=== PATIENT | female | born 1990 | race Hispanic/Latino ===

== ENCOUNTER 2019-07-29 10:36 | Emergency (ER) | payer OTHER ==
[2019-07-29] MEDS ORDERED: DICYCLOMINE HCL 10 MG CAP ONE (11:19)
[2019-07-29] MEDS ORDERED: NA CHLORIDE 0.9% 1,000 ML ONE (11:19)
[2019-07-29] MEDS ORDERED: ONDANSETRON 4 MG/2 ML VIAL ONE (11:19)
[2019-07-29 11:49] LABS: Absolute Lymphocytes (CBC) 0.8 K/uL (0.7-4.9); Basophils % 0.2 % (0-1.3); Hematocrit 41.6 % (36.0-45.0); Lymphocytes % 5.5 % (15.3-44.8); RBC Red Blood Cell Count 4.79 M/uL (3.86-4.86)
[2019-07-29 11:54] LABS: Urine Blood 2+ (NEG); Urine Glucose NEGATIVE (NEG); Urine Protein 1+ (NEG)
[2019-07-29 11:56] LABS: Albumin 4.3 g/dL (3.4-5.0); Bilirubin Total 0.8 mg/dL (0.2-1.0); Potassium 3.8 mmol/L (3.5-5.1)
[2019-07-29 12:02] LABS: Urine Bacteria 20-50 /HPF (<20)
[2019-07-29 12:03] LABS: Urine Culture Reflex Order REFLEXED
[2019-07-29 12:29] LABS: Blood Morphology Comment NOTED (NOT SEEN); Platelet Estimate ADEQ; Stomatocytes 1+
--- NOTE | 2019-07-29 12:59 | RAD REPORT ---
EXAM DESCRIPTION: CT - Abdomen Pelvis W Contrast - 07/29/2019 12:43 pm CLINICAL HISTORY: Abdominal pain COMPARISON: none. TECHNIQUE: Computed axial tomography of the abdomen pelvis was obtained. 100 cc Isovue-300 was admin istered intravenously. Oral contrast was not requested which limits evaluation of bowel. All CT scans are performed using dose optimization technique as appropriate and may include automated exposure control or mA/KV adjustment according to patient size. FINDINGS: The liver, spleen, pancreas, adrenal and kidneys appear unremarkable. Normal appendix. The wall of the proximal transverse colon and ascending colon is markedly thickened. Small umbilical hernia 2.8 centimeter right ovarian cyst without significant free-fluid IUD in good position IMPRESSION: Marked colitis involving the proximal transverse and ascending colon
[2019-07-29] MEDS ORDERED: KETOROLAC 30 MG/ML INJ ONE (13:02)
[2019-07-29] MEDS ORDERED: CIPROFLOXACIN 400mg IV 0 MG/0 ML BAG IV ONE (13:11)
[2019-07-29] MEDS ORDERED: METRONIDAZOLE 500mg IVPB 0 MG/0 ML BAG IV ONE (13:11)
[2019-07-29] MEDS ORDERED: metroNIDAZOLE 500 MG TABLET ONE (13:14)
[2019-07-29] MEDS ORDERED: CIPROFLOXACIN HCL 500 MG TAB ONE (13:14)
--- NOTE | 2019-07-29 13:23 | ER ---
Nurse's Notes [facility] Name: Yamliet Cloud Age: 28 yrs Sex: Female : 1990 Arrival Date: 07/29/2019 Time: 10:39 Bed 13 Private MD: Diagnosis: Colitis Presentation: 07/29 10:48 Presenting complaint: Patient states: suprapubic pain since last night, denies burning em with urination, also reports fever of 101.3 last night, N/D, denies vomiting, took Tylenol this morning 0700. Transition of care: patient was not received from another setting of care. Onset of symptoms was July 28, 2019. Risk Assessment: Do you want to hurt yourself or someone else? Patient reports no desire to harm self or others. Initial Sepsis Screen: Does the patient meet any 2 criteria? HR > 90 bpm. No. Patient's initial sepsis screen is negative. Does the patient have a suspected source of infection? No. Patient's initial sepsis screen is negative. Care prior to arrival: None. 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 - Social history:: Smoking status: Patient uses tobacco products. - Ebola Screening: : Patient negative for fever greater than or equal to 101.5 degrees Fahrenheit, and additional compatible Ebola Virus Disease symptoms Patient denies exposure to infectious person Patient denies travel to an Ebola-affected area in the 21 days before illness onset No symptoms or risks identified at this time. Screenin:52 Abuse screen: Denies threats or abuse. Nutritional screening: No deficits noted. em Tuberculosis screening: No symptoms or risk factors identified. Fall Risk None identified. Assessment: 10:51 General: Appears in no apparent distress. comfortable, Behavior is calm, cooperative, em Reports fever for 0-12 hours. Pain: Complains of pain in suprapubic area Pain currently is 0 out of 10 on a pain scale. at worst was 10 out of 10 on a pain scale. Pain began last night Is intermittent. Neuro: Level of Consciousness is awake, alert, obeys commands, Oriented to person, place, time, situation, Appropriate for age. Cardiovascular: Capillary refill < 3 seconds Patient's skin is warm and dry. Respiratory: Airway is patent Respiratory effort is even, unlabored, Respiratory pattern is regular, symmetrical. GI: Abdomen is flat, Bowel sounds present X 4 quads. Abd is soft X 4 quads Abdomen is tender to palpation in suprapubic area Reports diarrhea, nausea, Patient currently denies vomiting. : Denies burning with urination. Derm: Skin is intact, is healthy with good turgor, Skin is pink, warm \T\ dry. Musculoskeletal: Capillary refill < 3 seconds, Range of motion: intact in all extremities. 11:40 Reassessment: Patient appears in no apparent distress at this time. Patient and/or em family updated on plan of care and expected duration. Pain level reassessed. nausea has improved. 12:00 Reassessment: Patient appears in no apparent distress at this time. reports cramping em pain that lasted about 3 minutes, pain has subsided without intervention, provider notified of pain. Vital Signs: 10:51 BP 146 / 93; Pulse 105; Resp 20; Temp 99.7(O); Pulse Ox 96% on R/A; Weight 81.65 kg; em Height 5 ft. 6 in. (167.64 cm); Pain 0/10; 11:46 BP 132 / 85; Pulse 89; Resp 18; Pulse Ox 99% on R/A; Pain 0/10; em 13:00 BP 125 / 76; Pulse 86; Resp 18; Pulse Ox 97% on R/A; em 10:51 Body Mass Index 29.05 (81.65 kg, 167.64 cm) em ED Course: 10:39 Patient arrived in ED. as 10:39 Evangelista Raman PA is PHCP. jr8 10:39 Sam Garzon MD is Attending Physician. jr8 10:41 Harley Alarcon LVN is Primary Nurse. em 10:51 Arm band placed on. em 10:52 Patient has correct armband on for positive identification. Placed in gown. Bed in low em position. Call light in reach. Pulse ox on. NIBP on. 10:55 Triage completed. ss 11:30 Initial lab(s) drawn, by me, sent to lab. Inserted saline lock: 20 gauge in right em antecubital area, using aseptic technique. Blood collected. 12:43 CT Abd/Pelvis - IV Contrast Only In Process Unspecified. EDMS 13:22 Alexis López MD is Referral Physician. jr8 13:23 No provider procedures requiring assistance completed. em 13:35 IV discontinued, intact, bleeding controlled, No redness/swelling at site. Pressure em dressing applied. Administered Medications: 11:30 Drug: NS 0.9% 1000 ml Route: IV; Rate: 1000 ml; Site: right antecubital; ss 13:09 Follow up: IV Status: Completed infusion; IV Intake: 1000ml em 11:30 Drug: Zofran 4 mg Route: IVP; Site: right antecubital; ss 11:46 Follow up: Response: No adverse reaction; Nausea is decreased em 11:45 Drug: Bentyl 20 mg Route: PO; em 12:25 Follow up: Response: No adverse reaction em 13:09 Drug: TORadol - Ketorolac 15 mg Route: IVP; Site: right antecubital; ss 13:21 Follow up: Response: No adverse reaction; Pain is decreased em 13:21 Drug: Ciprofloxacin 500 mg Route: PO; em 13:30 Follow up: Response: Medication administered at discharge. em 13:21 Drug: Flagyl 500 mg Route: PO; em 13:30 Follow up: Response: No adverse reaction; Medication administered at discharge. em Intake: 13:09 IV: 1000ml; Total: 1000ml. em Outcome: 13:22 Discharge ordered by . jr8 13:34 Discharged to home ambulatory, with family. em 13:34 Condition: good 13:34 Discharge instructions given to patient, family, Instructed on discharge instructions, follow up and referral plans. medication usage, Demonstrated understanding of instructions, follow-up care, medications, Prescriptions given X 5 13:36 Patient left the ED. em Signatures: Dispatcher [employer] EDMS Harley Alarcon, EDGE INKER HEELS EDGE INKER HEELS em Patricia Parr Shelby, SALLY RN ss Evangelista Raman, ROSI ARANDA jr8
--- NOTE | 2019-07-29 13:23 | EDPHYS ---
Physician Documentation [facility] Name: Yamilet Cloud Age: 28 yrs Sex: Female : 1990 Arrival Date: 07/29/2019 Time: 10:39 Bed 13 Private MD: ED Physician Sam Garzon HPI: 07/29 11:51 This 28 yrs old Female presents to ER via Ambulatory with complaints of jr8 Abdominal Pain, Diarrhea, Fever, Headache. 11:51 The patient presents with abdominal pain in the lower abdomen. Onset: The jr8 symptoms/episode began/occurred today, yesterday. The symptoms do not radiate. Associated signs and symptoms: Pertinent positives: diarrhea. The symptoms are described as crampy, sharp. Modifying factors: The symptoms are alleviated by nothing. Severity of pain: At its worst the pain was moderate in the emergency department the pain has resolved. Pt reports nausea, diarrhea, cough, low grade fever, and intermittent abd pain followed by the sensation of needing to have a BM.. 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 - Social history:: Smoking status: Patient uses tobacco products. - Ebola Screening: : Patient negative for fever greater than or equal to 101.5 degrees Fahrenheit, and additional compatible Ebola Virus Disease symptoms Patient denies exposure to infectious person Patient denies travel to an Ebola-affected area in the 21 days before illness onset No symptoms or risks identified at this time. ROS: 11:51 Constitutional: Negative weight loss + fever Eyes: Negative for injury, pain, redness, jr8 and discharge, ENT: Negative for injury, pain, and discharge, Neck: Negative for injury, pain, and swelling, Cardiovascular: Negative for chest pain, palpitations, and edema, Respiratory: Negative for shortness of breath, cough, wheezing, and pleuritic chest pain, Back: Negative for injury and pain, : Negative for injury, bleeding, discharge, and swelling, MS/Extremity: Negative for injury and deformity, Neuro: Negative for headache, weakness, numbness, tingling, and seizure. 11:51 Abdomen/GI: Positive for diarrhea. Exam: 11:53 Constitutional: This is a well developed, well nourished patient who is awake, alert, jr8 and in no acute distress. Head/Face: Normocephalic, atraumatic. Eyes: Pupils equal round and reactive to light, extra-ocular motions intact. Lids and lashes normal. Conjunctiva and sclera are non-icteric and not injected. Cornea within normal limits. Periorbital areas with no swelling, redness, or edema. ENT: Mucous membranes moist. Neck: Trachea midline, no thyromegaly or masses palpated, and no cervical lymphadenopathy. Supple, full range of motion without nuchal rigidity, or vertebral point tenderness. No Meningismus. Chest/axilla: Normal chest wall appearance and motion. Nontender with no deformity. No lesions are appreciated. Cardiovascular: Regular rate and rhythm with a normal S1 and S2. No gallops, murmurs, or rubs. Normal PMI, no JVD. No pulse deficits. Respiratory: Lungs have equal breath sounds bilaterally, clear to auscultation.No rales, rhonchi or wheezes noted. No increased work of breathing, no retractions or nasal flaring. Abdomen/GI: Soft, non-tender, with normal bowel sounds. No distension or tympany. No guarding or rebound. No evidence of tenderness throughout. Back: No spinal tenderness. No costovertebral tenderness. Full range of motion. MS/ Extremity: Pulses equal, no cyanosis. Neurovascular intact. Full, normal range of motion. Neuro: Awake and alert, GCS 15, oriented to person, place, time, and situation. Cranial nerves II-XII grossly intact. Motor strength 5/5 in all extremities. Sensory grossly intact. Cerebellar exam normal. Normal gait. Vital Signs: 10:51 BP 146 / 93; Pulse 105; Resp 20; Temp 99.7(O); Pulse Ox 96% on R/A; Weight 81.65 kg; em Height 5 ft. 6 in. (167.64 cm); Pain 0/10; 11:46 BP 132 / 85; Pulse 89; Resp 18; Pulse Ox 99% on R/A; Pain 0/10; em 13:00 BP 125 / 76; Pulse 86; Resp 18; Pulse Ox 97% on R/A; em 10:51 Body Mass Index 29.05 (81.65 kg, 167.64 cm) em MDM: 10:45 Patient medically screened. jr8 13:21 Differential diagnosis: appendicitis, bowel obstruction, diverticulitis, gastritis, jr8 non-specific abd pain, Pelvic Inflammatory Disease, urinary tract infection, colitis, enteritis. Data reviewed: vital signs, nurses notes, lab test result(s), radiologic studies, CT scan. Data interpreted: Pulse oximetry: on room air is 99 %. Interpretation: normal. Counseling: I had a detailed discussion with the patient and/or guardian regarding: the historical points, exam findings, and any diagnostic results supporting the discharge/admit diagnosis, lab results, radiology results, the need for outpatient follow up, a family practitioner, a purchasing associate, to return to the emergency department if symptoms worsen or persist or if there are any questions or concerns that arise at home. Response to treatment: the patient's symptoms have mildly improved after treatment. 07/29 11:10 Order name: Urine Dipstick--Ancillary (enter results); Complete Time: 11:56 07/29 11:10 Order name: Urine --Ancillary (enter results); Complete Time: 11:56 eb 07/29 11:11 Order name: Flu; Complete Time: 11:56 8 07/29 11:11 Order name: CBC with Diff; Complete Time: 12:58 jr8 07/29 11:11 Order name: CMP; Complete Time: 11:56 jr8 07/29 11:12 Order name: Urine Microscopic Only; Complete Time: 12:04 eb 07/29 12:05 Order name: Urine Culture EDCT 07/29 12:07 Order name: CT Abd/Pelvis - IV Contrast Only; Complete Time: 13:05 8 07/29 12:29 Order name: Manual Differential; Complete Time: 12:58 EDCT 07/29 11:11 Order name: SL; Complete Time: 11:33 jr8 Administered Medications: 11:30 Drug: NS 0.9% 1000 ml Route: IV; Rate: 1000 ml; Site: right antecubital; ss 13:09 Follow up: IV Status: Completed infusion; IV Intake: 1000ml em 11:30 Drug: Zofran 4 mg Route: IVP; Site: right antecubital; ss 11:46 Follow up: Response: No adverse reaction; Nausea is decreased em 11:45 Drug: Bentyl 20 mg Route: PO; em 12:25 Follow up: Response: No adverse reaction em 13:09 Drug: TORadol - Ketorolac 15 mg Route: IVP; Site: right antecubital; ss 13:21 Follow up: Response: No adverse reaction; Pain is decreased em 13:21 Drug: Ciprofloxacin 500 mg Route: PO; em 13:30 Follow up: Response: Medication administered at discharge. em 13:21 Drug: Flagyl 500 mg Route: PO; em 13:30 Follow up: Response: No adverse reaction; Medication administered at discharge. em Disposition: 15:30 Co-signature as Attending Physician, Sam Garzon MD. gs Disposition: 07/29/19 13:22 Discharged to Home. Impression: Colitis. - Condition is Stable. - Discharge Instructions: Colitis. - Prescriptions for Bentyl 20 mg Oral Tablet - take 1 tablet by ORAL route every 6 hours As needed; 20 tablet. Cipro 500 mg Oral Tablet - take 1 tablet by ORAL route every 12 hours for 10 days; 20 tablet. Flagyl 500 mg Oral Tablet - take 1 tablet by ORAL route every 6 hours for 10 days; 40 tablet. Tylenol- Codeine #3 300-30 mg Oral Tablet - take 2 tablets by ORAL route every 6 hours As needed; 12 tablet. Zofran 4 mg Oral Tablet - take 1 tablet by ORAL route every 12 hours As needed; 20 tablet. - Medication Reconciliation Form, Thank You Letter, Antibiotic Education, Prescription Opioid Use form. - Work release form (07/29/19 13:37). em - Follow up: Alexis López MD; When: 10 - 14 days; Reason: Recheck today's complaints, Continuance of care, Re-evaluation by your physician. - Problem is new. - Symptoms have improved. Signatures: Dispatcher [employer] EDCT Harley Alarcon, ASSISTANT IN NURSING ASSISTANT IN NURSING Vee Thomas RN RN Evangelista Henderson PA PA jr8 Sam Garzon MD MD Corrections: (The following items were deleted from the chart) 13:36 13:22 07/29/2019 13:22 Discharged to Home. Impression: Colitis. Condition is Stable. em Forms are Medication Reconciliation Form, Thank You Letter, Antibiotic Education, Prescription Opioid Use. Follow up: Alexis López; When: 10 - 14 days; Reason: Recheck today's complaints, Continuance of care, Re-evaluation by your physician. Problem is new. Symptoms have improved. jr8
[2019-07-29 14:00] VITALS: TEMP 99.7
[2019-07-29 14:02] VITALS: BP 125/76; O2SAT 97
== END 2019-07-29 13:36 | disposition home or self-care (01) ==
LOC: ER 10:36
DX: K52.9 Noninfective gastroenteritis and colitis, unspecified (principal); Z72.0 Tobacco use
CPT/HCPCS: 96361; 87088; 85025; 87086; 36415; 81025; 80053; 87804 ×2; 74177; 96375; 96374; 99284; Q9967; J7030; J2405; 81003; 81015; J0744

== ENCOUNTER 2022-04-25 07:56 | Inpatient (IN) | payer OTHER ==
[2022-04-25 09:11] LABS: Specific Gravity 1.025 (1.005-1.030); Urine Bilirubin Negative (Negative); Urine Blood Trace-lysed (Negative); Urine Clarity Clear (Clear); Urine Color Yellow (Yellow); Urine Glucose Negative (Negative); Urine Protein 1+ (Negative); Urine Urobilinogen 0.2 mg/dL (0.2-1.0); Urine pH 6.5 (5.0-7.0)
[2022-04-25 09:28] LABS: Urine Bacteria <20 /HPF (<20); Urine Mucus Slight /HPF (None Seen); Urine RBC <5 /HPF (None Seen)
[2022-04-25] MEDS ORDERED: Ringers Lactate 1,000 ML IV PRN (09:39)
[2022-04-25] MEDS ORDERED: PROMETHAZINE INJ 25 MG/ML AMP IV PRN (09:39)
[2022-04-25] MEDS ORDERED: BUTORPHANOL 1 MG/ML INJ IV PRN (09:39)
[2022-04-25] MEDS: Ringers Lactate 1,000 ML IV SCH ×2 (09:43→16:29)
[2022-04-25] MEDS ORDERED: MAGNESIUM SULF/STERILE WATER 1,000 ML IV SCH (10:00)
[2022-04-25] MEDS ORDERED: miSOPROStoL 100 MCG TAB VAG ONE (10:00)
[2022-04-25] MEDS ORDERED: LABETALOL 20 MG/4ML SYRINGE IV PRN (10:06)
[2022-04-25] MEDS ORDERED: LABETALOL HCL 100 MG/20 ML ONE (10:07)
[2022-04-25 10:22] LABS: Hematocrit 38.2 % (36.0-45.0); Lymphocytes % 18.3 % (15.3-44.8); MCV 82.7 fL (80-100); MPV 11.3 fL (7.6-11.3); RBC Red Blood Cell Count 4.62 M/uL (3.86-4.86)
[2022-04-25 10:30] LABS: Protime INR 0.96
[2022-04-25 10:57] LABS: ALT/SGPT 18 U/L (12-78); AST/SGOT 15 U/L (15-37); Albumin 2.6 g/dL (3.4-5.0); Alkaline Phosphatase 183 U/L (45-117); BUN Blood Urea Nitrogen 9 mg/dL (7-18); Bicarbonate 20 mmol/L (21-32); Bilirubin Total 0.3 mg/dL (0.2-1.0); Glomerular Filtration Rate 115 ml/min (=/>90); Glucose Level 97 mg/dL (74-106); Potassium 3.6 mmol/L (3.5-5.1); Protein, Total 6.5 g/dL (6.4-8.2); Sodium Level 139 mmol/L (136-145); Uric Acid 5.8 mg/dL (2.6-6.0)
[2022-04-25 11:18] LABS: Blood Morphology Comment NOT SEEN (NOT SEEN); Platelet Estimate ADEQ; Platelets, Giant RARE; White Blood Cell Scan OK (OK)
[2022-04-25 11:53] LABS: Bilirubin Direct < 0.1 mg/dL (0-0.2)
[2022-04-25 12:19] VITALS: BMI 34.1
[2022-04-25] MEDS ORDERED: PENICILLIN 5 MU in NA CHLORIDE 0.9% 100 ML IV ONE (14:00)
[2022-04-25] MEDS ORDERED: LABETALOL HCL 100 MG/20 ML IV PRN ×2 (14:37→16:08)
--- NOTE | 2022-04-25 14:41 | PREOPHP ---
Date of Admission: 04/25/2022 History Of Present Illness: A 31-year-old 2, para 1, 37 weeks 5 days, noted to have elevated blood pressure in my office, +2 protein on clean-catch. Her hands are suffering from carpal tunnel syndrome, which shows fluid retention. Her ankles are really not that swollen. Reflexes are brisk, but not abnormal. 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 Here in the hospital, her blood pressures are ranging from 141 low to 168 high systolic. She has +1 protein on catheterized specimen and at this poi nt, it looks like she is developing preeclampsia. Of note, the father of this child is different fro m the father of the first child. Family History: Not contributory. Past Medical History: Patient has a history of asthma, has used her inhaler occasionally during the , but not significantly. Allergies: HAS NO ALLERGIES. Medications: vitamins prior to admission. Social History: Does not smoke. Physical Examination: HEENT: Clear. Pupils equal, round, reactive to light and accommodation. Conjunctivae well perfused . No oral, lingual, or buccal lesions. Chest and Lungs: Clear. Heart: Without murmurs, thrills, heaves, or rubs. Breasts: Without masses. Abdomen: Term size. Baby is 7 pounds or greater. Extremities: Clear with brisk reflexes, but no major edema. : Her cervix is 1.5, still somewhat posterior, 50% effaced, vertex -1 station, well applied. Baby looks great on the monitor. After discussion with patient , we decided to proceed with l abor induction. We will start off with Cytotec 50 mcg. I think she probably only will need 1 and th en later today will rupture membranes and begin Pitocin. She knows that we will have to start her on magnesium sulfate because of the preeclampsia and this will require Miller catheter. She is also str ep positive. When she gets into more active labor, we will start penicillin for prophylaxis. She wi ll still be able to get an epidural if she desires. She has also been diabetic during the . For all these reasons, we are going to proceed with delivery at this point. She is O positive, imm une to Rubella, but as I said, strep is positive and COVID status is pending, although she has no sym ptoms. EUGENIO/ROHIT Voice ID: [id number]
[2022-04-25] MEDS: miSOPROStoL 100 MCG TAB VAG SCH ×2 (16:29→23:24)
[2022-04-25] MEDS ORDERED: LABETALOL HCL 100 MG/20 ML IV ONE (17:00)
[2022-04-25] MEDS ORDERED: PENICILLIN 2.5 MU in NA CHLORIDE 0.9% 100 ML IV SCH (18:00)
[2022-04-25] MEDS ORDERED: ZOLPIDEM TARTRATE 10 MG TABLET PO ONE (21:00)
[2022-04-25 21:27] LABS: RPR (Rapid Plasma Reagin) NON-REACT (NON-REACT)
[2022-04-26] MEDS ORDERED: 0.2% ROPIVACAINE (200 MG/100 ML) BAG EP ONE (03:38)
[2022-04-26] MEDS ORDERED: FENTANYL CITR 100 MCG/2 ML IV ONE (03:39)
[2022-04-26] MEDS ORDERED: ROPIVACAINE HCL 0.2% 20ML AMP EP ONE (04:00)
[2022-04-26] MEDS ORDERED: OXYTOCIN/LR 20 UNIT/1,000 ML BAG IV SCH ×2 (04:39→08:00)
[2022-04-26] MEDS ORDERED: miSOPROStoL 100 MCG TAB ONE (05:32)
[2022-04-26] MEDS ORDERED: TRANEXAMIC ACID 1,000 MG/10 ML VIAL IV ONE (05:32)
[2022-04-26] MEDS ORDERED: NA CHLORIDE 0.9% 0 ML ONE (05:35)
--- NOTE | 2022-04-26 06:32 | PN ---
The patient has made good progress during the night, experienced spontaneous rupture of membranes, cl ear fluid. Got epidural anesthesia which is actually too effective. She cannot move her right leg, cannot feel the contractions. We will cut it back from 12 to 8 cc/hour. She has small anterior lip. Baby is about 0 station. FHT is reasonable at this point. No major decelerations. Some variabili ty is returned as the patient had Stadol earlier. Once she is able to feel the contractions, I think we can begin to push and make some progress. Last magnesium level was 5.5, well within the therapeu tic range. She has had her first dose of penicillin when membranes ruptured. Blood pressures have m oderated since the epidural, systolics in the 120 range at this point, looking good and as soon as we get the patient able to push, I think we can begin and make progress towards delivery. EUGENIO/ROHIT Voice ID: [id number] Report ID: [id number]
--- NOTE | 2022-04-26 07:10 | PN ---
The patient is starting to feel slightly more pressure. Basically, she is completely dilated. Baby is 0 station, but she still cannot push effectively, but can move her legs very well. Should be read y in the next few minutes to begin effective pushing. EUGENIO/ROHIT Voice ID: [id number] Report ID: [id number]
[2022-04-26] MEDS ORDERED: DIPHENHYDRAMINE 25 MG TAB/CAP PO PRN (07:53)
[2022-04-26] MEDS ORDERED: DOCUSATE NA/SENNA CONC 1 TAB PO PRN (07:53)
[2022-04-26] MEDS ORDERED: Oxycodone HCl/Acetaminophen 1 TAB TAB PO PRN ×2 (07:53)
[2022-04-26] MEDS ORDERED: ACETAMINOPHEN 500 MG TAB PO PRN (07:53)
[2022-04-26] MEDS ORDERED: BISACODYL 10 MG RECTAL SUPP PR PRN (07:53)
[2022-04-26] MEDS ORDERED: LABETALOL HCL 100 MG/20 ML IV PRN (08:41)
--- NOTE | 2022-04-26 08:47 | OP ---
Surgeon: Brendan Leach MD Procedure In Detail: The 31-year-old 2, para 1, 37 weeks and 5 days on admission. Preeclampsia, diabetes, history of asthma. Labor induction was performed with Cytotec, first dose 50 mcg, second dose 6 hours later 25 mcg, third dose 6 hours after the second dose 50 mcg. The patient experienced spontaneous rupture of membranes at that point, requested and received epidural anesthesia. Prior to that had Stadol 1 mg IV, Phenergan 25 mg IM. Second stage, once the patient began to feel of approximately 15-20 minutes. Spontaneous vaginal delivery of a 7 pounds 6 ounces female, Apgars 9 and 9. Loose nuchal cord x1. No episiotomy. No laceration. Schultze delivery of the placenta, which was inspected and noted to be intact and normal. Less than 200 cc blood loss. The patient was Strep positive, received 2 doses of penicillin during the labor. Tolerated all procedures well. She had magnesium sulfate running during the labor. The patient was administered labetalol on at least 3 or 4 occasions for her blood pressure elevation during the labor, .>160 systolic. Last blood pressure was 150 systolic. We have restarted the magnesium sulfate at 2 g/hour. The last 2 magnesium levels were well within the therapeutic range. We will probably continue the magnesium for the next 12-24 hours. Final Diagnoses: 1. Intrauterine gestation at 37 weeks and 5 days. 2. Preeclampsia. 3. Diabetes. 4. Labor induction. 5. Cytotec. 6. Vaginal delivery. 7. Epidural anesthesia. 8. Penicillin prophylaxis for beta strep status. NBC/MODL Voice ID: [id number] Report ID: [id number] AFBIANO
[2022-04-26] MEDS: IBUPROFEN 600 MG TAB PO PRN ×2 (09:50→19:08)
[2022-04-26] MEDS ORDERED: Ringers Lactate 0 ML IV ONE (21:08)
[2022-04-26] MEDS ORDERED: Ringers Lactate 1,000 ML IV ONE (21:14)
[2022-04-26] MEDS ORDERED: Ringers Lactate 1,000 ML IV SCH (22:00)
[2022-04-26] MEDS ORDERED: MAGNESIUM SULF/STERILE WATER 1,000 ML IV ONE (23:23)
[2022-04-26] MEDS ORDERED: MAGNESIUM SULF/STERILE WATER 1,000 ML IV SCH (23:45)
[2022-04-27] MEDS: IBUPROFEN 600 MG TAB PO PRN (03:28)
[2022-04-27 07:55] VITALS: BP 172/86; TEMP 97
--- NOTE | 2022-04-27 07:59 | DS ---
A 31-year-old 2, para 1, 37 weeks 5 days, discovered to have +2 protein, elevated blood press ures, brisk reflexes, but no pretibial edema, but her hands were swollen with carpal tunnel, was sent to Labor and Delivery for assessment and noted to be preeclamptic. After discussion with patient's family, it was decided to admit, started on Cytotec for labor induction, 150 mcg followed by 25 mcg, followed by a third 50 mcg Cytotec was used. After the third Cytotec, she experienced spontaneous ru pture of membranes, was given Stadol 1 mg IV, Phenergan 25 mg IM. The patient states that the IM sit e is somewhat numb. She can still move her legs and move around. She knows that passage of time brandee uld help that and she will get back on her vitamins. If she has any trouble, we will send h er to Neurology. The IV medication, Stadol, was followed by epidural anesthesia. The patient was st arted on magnesium sulfate. She is also given penicillin prophylaxis, as she was strep positive. Se cond stage of about 20 minutes. Spontaneous vaginal delivery of a 7 pounds 6 ounces female, 's of 9 and 9, very loose nuchal cord. No episiotomy. No laceration. [place] delivery of the placenta, less than 200 cc blood loss. The patient tolerated all procedures well. , her blood pres sures have moderated. She has no THORACIC SURGEON symptoms, is ambulating. No complaints or problems this lissy g. She will be dismissed later today to report back to my office next week. If she has any blood pr essure elevations, she is able to monitor home blood pressures at home. She is to report any tempera ture elevation of 100 degrees or greater, severe pain, heavy bleeding, or any other type of abnormali ties. No post epidural problems. Final Diagnoses: Intrauterine gestation 37 weeks 5 days, preeclampsia diagnosed, labor induction wit h Cytotec, vaginal delivery at 37 weeks 6 days, diabetic during the . Penicillin prophylaxis, epidural anesthesia. ELLENC/MODL Voice ID: [id number] Report ID: [id number]
[2022-04-27] MEDS ORDERED: LABETALOL HCL 100 MG TAB PO ONE (08:10)
== END 2022-04-27 10:15 | disposition home or self-care (01) | DRG 807 ==
LOC: L&D 07:56 → 2ND-WC 09:50
PROVIDERS: ADMIT Specialist; ATTEND Specialist
PROC: 10E0XZZ Delivery of Products of Conception, External Approach (ICD-10-PCS; principal; 2022-04-26)
PROC: 3E0DXGC Introduction of Other Therapeutic Substance into Mouth and Pharynx, External Approach (ICD-10-PCS; 2022-04-26)
DX: O24.429 Gestational diabetes mellitus in childbirth, unspecified control (principal); Z37.0 Single live birth; O14.94 Unspecified pre-eclampsia, complicating childbirth; O99.824 Streptococcus B carrier state complicating childbirth; Z3A.37 37 weeks gestation of pregnancy; Z20.822 Contact with and (suspected) exposure to COVID-19
CPT/HCPCS: 36415; 80053; 81001; 82248; 83735; 83986; 84550; 85025; 85610; 85730; 86592; 86850; 86900; 86901; 87340; 99218; J0595; J2540; J2550; J2590; J2795; J3010; J3475; J7120; U0003

== ENCOUNTER 2024-02-06 23:59 | Emergency (ER) | payer OTHER, SELFPAY ==
[2024-02-07] MEDS ORDERED: TDAP (DIPHTH,PERTUSS(ACELL),TET VAC) 0.5 ML VIAL IMVAC ONE (00:15)
[2024-02-07] MEDS ORDERED: LIDOCAINE 1% MPF 5 ML VIAL ONE (00:15)
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
[2024-02-07] MEDS ORDERED: IBUPROFEN 400 MG TAB ONE (00:55)
[2024-02-07 01:47] VITALS: BP 152/92; TEMP 98.2; O2SAT 98
--- NOTE | 2024-02-08 10:32 | RAD REPORT ---
EXAM DESCRIPTION: RAD - Forearm Right - 02/07/2024 1:08 am 2 views right forearm CLINICAL HISTORY: Forearm pain. COMPARISON: None. FINDINGS: No acute fracture or dislocation is seen. The joint spaces are preserved. The soft tissues are unremarkable. IMPRESSION: No acute fracture or malalignment. Electronically signed by: Keanu Alvarez MD 02/07/2024 01:25 AM CDT Due to temporary technical issues with the PACS/Fluency reporting system, reports are being signed by the in house radiologist without review as a courtesy to ensure prompt reporting. The interpreting r adiologist is fully responsible for the content of the report.
== END 2024-02-07 01:15 | disposition home or self-care (01) ==
LOC: ER 23:59
PROC: 0HQ1XZZ Repair Face Skin, External Approach (ICD-10-PCS; principal; 2024-02-07)
DX: S01.511A Laceration without foreign body of lip, initial encounter (principal); S50.11XA Contusion of right forearm, initial encounter
CPT/HCPCS: 96372; 99284; J2001